=== PATIENT | male | born 1965 | race Caucasian/White ===

== ENCOUNTER 2025-05-18 16:35 | Emergency (ER) | payer BC, SELFPAY ==
[2025-05-18 16:40] VITALS: BP 178/90
--- NOTE | 2025-05-18 17:01 | ED.GENMED ---
History of Present Illness
General
Chief Complaint: DVT/Possible Blood Clot
Source: patient
Exam Limitations: none
Time Seen by Provider: 05/18/25 16:52
Nursing documentation reviewed up to this point in time: agreed with
History of Present Illness
History of Present Illness:
Patient is a 60-year-old male who presents to the emergency department with right calf pain/swelling. He states that he initially noticed a mild discomfort behind his right knee on Friday which has persisted. Today while he was at the gym he
noticed that his right leg seemed somewhat swollen. He contacted his primary care provider who recommended an ultrasound to rule out a blood clot.
Patient states pain is mainly located behind his right knee and in his right calf and describes it as a 'tightness'. The symptoms are exacerbated with weightbearing/movement. He has no pain at rest. No fever, chills, numbness/tingling or weakness
in right lower leg. No recent fall or trauma. No recent travel or surgery. No associated chest pain or shortness of breath.
Patient has no personal or family history of blood clots/clotting disorders.
Past History
Past History
ED Past Medical History: None
ED Past Surgical History: Other (Cataract surgery L eye)
Social History
Tobacco: Non-smoker
Alcohol: None
Drug: None
Personal:
Living: with family
Employment: Employed ([employer] Assessment)
Family History
Family History: Negative Early CAD
Review of Systems
Review of Systems
Allergies reviewed?: Yes
All Other Systems: ROS reviewed and negative except as documented in HPI and ROS
Phy Exam
Physical Exam
Physical Exam:
Vitals: Hypertensive, otherwise vital signs are stable. Afebrile
General: Patient is well appearing, no acute distress. Nontoxic appearing
Skin: Warm and dry, no rashes or lesions
Head: Normocephalic, atraumatic
Throat: Protecting airway
Neck: Normal ROM, no cervical spine tenderness
Cardiac: Regular rate and rhythm. No murmurs
Pulm: No apparent respiratory distress. Lungs clear bilaterally
Abdomen: Nondistended
Extremities: Very mild tenderness in right popliteal space/right posterior calf, mild nonpitting edema of right calf. No palpable cyst in popliteal space or erythema/warmth of right lower extremity. 2+ palpable right DP pulse. Negative Homans'
sign. Strength 5/5 with normal sensation and capillary refill.
Neuro: Grossly intact
Psychiatric: Normal affect.
Course
Orders/Labs/Results
Orders:
Orders
05/18/25 16:37
Venous Doppler Lwr Ext Rt [[facility] Venous LOWER Ext RT] Urgent
Comment:
Reason For Exam: pain
Vital Signs
Initial and Last Documented VS:
Initial Vital Signs
Temp Pulse Resp BP Pulse Ox
98.2 F 74 20 178/90 98
05/18/25 16:40 05/18/25 16:40 05/18/25 16:40 05/18/25 16:40 05/18/25 16:40
Last Documented Vital Signs
Temp Pulse Resp BP Pulse Ox
98.2 F 74 20 178/90 98
05/18/25 16:40 05/18/25 16:40 05/18/25 16:40 05/18/25 16:40 05/18/25 17:04
MDM/Problems Addressed
Differential Diagnosis Includes:
Not limited to: Muscle strain, Jones's cyst, DVT, etc.
MDM/Problems Addressed:
60-year-old male presents with atraumatic right lower extremity pain and mild swelling, first noticed approximate 4 days ago, gradually worsening with movement and ambulation. Mild swelling noted today. Denies systemic symptoms goading fever,
chills, chest pain, or shortness of breath.
On exam, vitals are within normal limits. There is tenderness in the right popliteal space and calf with mild nonpitting edema. No erythema or warmth noted. The right lower extremity is neurovascular intact. No signs on physical exam to suggest
an infectious process. No history of recent trauma.
Given localized pain, swelling and tenderness in/popliteal region will obtain ultrasound to rule out DVT. Alternate considerations include musculoskeletal strain, Jones's cyst, etc. will reassess based on imaging results.
Update: Ultrasound without evidence of DVT however does make note of Jones's cyst. Suspect this is likely contributing to patient's pain/swelling of right lower leg. No evidence of infectious process or neurovascular process. Feel stable for
discharge home with supportive care. Advised compression, ice, NSAIDs/Tylenol for pain. Information given for orthopedic follow-up. Strict return precautions discussed. Patient comfortable with plan and ambulating out of department without
difficulty.
Chronic conditions affecting care:
N/A
Acute Exacerbation and/or Progression of Chronic Illness:
N/A
*Radiology
Radiology exam reviewed: radiology read reviewed
*Pulse Oximetry
SaO2: 98
Oxygen Mode of Delivery: Room air
Patient hypoxic: no
*EKG
Interpreted by ED Provider?: NA
*Library Media Specialist Interpretation
Rate: Library Media Specialist- N/A
*Critical Care Note
Total Time (30-74mins, 75-104mins- exclusive of procedures): Not Applicable
ED Attending Note
-
Portions of this chart may have been created with voice recognition software.� Occasional wrong word or��sound alike� substitutions may have occurred due to the inherent limitations of voice recognition software.
Discharge Plan
Departure
Patient Disposition: Home (Routine Discharge)
Date of Disposition: 05/18/25
Time of Disposition: 19:25
Patient with high blood pressure during this ER visit?: Yes
Condition: Good
Discharge Problem:
Swelling of right lower extremity, Jones cyst
Instructions: Jones's Cyst (DC), BLOOD PRESSURE
Prescriptions:
No Action
cholecalciferol (vitamin D3) 2,000 UNITS tablet
2,000 units PO DAILY
aspirin 81 MG tablet,delayed release (DR/EC)
81 mg PO DAILY 0RF
benzonatate 100 MG capsule
200 mg PO TIDPRN PRN (Reason: cough) 10 Days Qty: 30 0RF
zinc sulfate 220 MG capsule
220 mg PO DAILY 30 Days Qty: 30 0RF
prednisone 10 MG tablet
10 mg PO .TAPER Qty: 18 0RF
Rx Instructions:
30mg daily x3days,
20mg daily x3days, 10mg daily x3days.
Referrals:
Yoandy Valle MD [Active, Orthopedics] - Follow up in 1 week
Shankar Sparks DO [Family Provider, Internal Medicine]
Stand Alone Forms: Return to Work
Activity Restrictions/Additional Instructions:
RETURN TO THE EMERGENCY DEPARTMENT WITH ANY FEVER, WORSENING PAIN OR SWELLING IN RIGHT LOWER LEG, ANY REDNESS OR WARMTH OF RIGHT LOWER LEG, NUMBNESS/TINGLING OR WEAKNESS, WORSENING IN CURRENT SYMPTOMS, OR ANY OTHER CONCERNS
- As discussed�the ultrasound showed no evidence of a blood clot however did note a Jones's cyst.
- Please ice, elevate right leg over the next few days. You can wear an Alon wrap for compression. Take NSAIDs and/or Tylenol as needed for discomfort. Weight-bear as tolerated.
- Follow-up with orthopedics for further evaluation/management to ensure that your symptoms are improving. If symptoms persist/worsen you may require further imaging
Monitor your symptoms closely and return to the emergency department with any acute worsening/new symptoms or any other concerns
Interventions
Interventions:
*Risk Screen - Suicide Last Done: 05/18/25 18:23
*General Assessment Last Done: 05/18/25 16:40
*Neglect/Abuse Screening Last Done: 05/18/25 19:33
*ED- Fall Risk Assessment Last Done: 05/18/25 18:23
*ED COVID-19 Vaccine History Last Done: 05/18/25 18:23
*ED Influenza Vaccine History Last Done: 05/18/25 18:23
*Nursing Disposition Last Done: 05/18/25 19:33
ED- Cardiac Assessment Last Done: 05/18/25 18:22
ED- Pulmonary Assessment Last Done: 05/18/25 18:22
ED-Peripheral Vascular Assessment Last Done: 05/18/25 18:22
ED-Skin Assessment Last Done: 05/18/25 18:22
Discharge Date and Time
Discharge Date/Time: 05/18/25 19:33
Print Language: MONTSERRATIAN
== END 2025-05-18 19:33 | disposition home or self-care (01) ==
LOC: EMR 16:35
PROVIDERS: EMERGENCY PHYSICIAN Emergency Medicine; FAMILY PHYSICIAN Internal Medicine
DX: M71.21 Synovial cyst of popliteal space [Baker], right knee (principal); R22.41 Localized swelling, mass and lump, right lower limb
CPT/HCPCS: 99284; 93971